=== PATIENT | female | born 1990 | race Caucasian/White ===

== ENCOUNTER → 2017-01-01 | Outpatient (CLI) | payer BC, OTHER ==
[~2017-01-01] MED LIST: HYDR25CA PO; METH4PAK PO; MTR600X PO; ONDA4TAB46 PO; PRENTAB26 PO; PRT/40 PO; RANI150T3 PO; ZNTT/150 PO
[2017-01-01 12:07] LABS: BASO % 0.3 %; BASO ABS # 0.02 K/uL (0-0.2); COMPLETE YES; EOS % 1.6 %; HEMATOCRIT 39.5 % (37-47); IG% 0.3 %; LYMPH % 32.9 %; LYMPH ABS # 2.29 K/uL (1.2-3.4); MEAN CELL VOLUME 89.8 fL (80-100); MEAN CORPUSCULAR HEMOGLOBIN 30.7 pg (25-34); MEAN CORPUSCULAR HGB CONC 34.2 g/dl (32-36); MEAN PLATELET VOLUME 10.4 fL (7.4-10.4); MONO % 4.7 %; NEUT % 60.2 %; PLATELET COUNT 257 K/uL (130-400); WHITE BLOOD COUNT 6.95 K/uL (4.8-10.8)
[2017-01-01 12:41] LABS: C-REACTIVE PROTEIN 1.69 mg/dl (0-0.29); RHEUMATOID FACTOR < 10.0 U/mL (0-15)
[2017-01-03 20:22] LABS: HLA-B27** TC 528X NEGATIVE (NEGATIVE)
== END | disposition home or self-care (01) ==
LOC: C.LAB 10:48
PROVIDERS: ATTEND Podiatrist Foot & Ankle Surgery
DX: M79.673 Pain in unspecified foot (principal)

== ENCOUNTER 2017-03-30 18:25 | Emergency (ER) | payer BC, OTHER ==
[~2017-03-30] VITALS: Ht 162.6 cm; Wt 74.4 kg
[~2017-03-30 18:25] MED LIST changes: -HYDR25CA PO; -METH4PAK PO; +PANT40TA2 PO; -PRT/40 PO; -ZNTT/150 PO
[2017-03-30 18:35] VITALS: TEMP 36.9; Ht 162.6 cm; Wt 74.4 kg
[2017-03-30] MEDS ORDERED: SODIUM CHLORIDE 0.9% 1000ML 1,000 ML IV STA (19:18)
[2017-03-30] MEDS ORDERED: DiphenhydrAMINE HCL 50 MG/ML VIAL IV STA (19:18)
[2017-03-30] MEDS ORDERED: FAMOTIDINE 20MG/102 ML D5W IV STA (19:18)
--- NOTE | 2017-03-30 19:21 | EMERGENCY ROOM VISIT NOTE ---
History Report prepared by [place]: Kaleigh Peña Under the Supervision of: Dr. Louis Kelley M.D. First contact with patient: 19:13 Chief Complaint: ALLERGIC REACTION Stated Complaint: ITCHY RASH Nursing Triage Summary: hives all over body, denies known allergen History of Present Illness The patient is a 27 year old female who presents to the Emergency Room with complaints of worsening global rash beginning last night. The patient states that last night she began to feel very itchy. This morning she woke up with red hives all over her body. She describes the rash a itchy and burning sensation. She denies new food intake, known allergies, shortness of breath, asthma, abdominal pain, vomiting, nausea, recent tick bites, or use of well water. Source of History: patient Onset: last night Position: other (global) Quality: other (pasquale) Timing: worsening Associated Symptoms: No abdominal pain, No nausea, No vomiting Note: Patient is experiencing itchy and burning red rash. Review of Systems See HPI for pertinent positives & negatives. A total of 10 systems reviewed and were otherwise negative. Past Medical & Surgical Medical Problems: (1) OTITIS MEDIA NOS (2) (3) Spotting affecting in second trimester Family History Cancer Diabetes mellitus Hypertension Social History Smoking Status: Current Every Day Smoker Alcohol Use: none Marital Status: in relationship Housing Status: lives with significant other Occupation Status: employed Current/Historical Medications Scheduled Methylprednisolone (Medrol Dosepak), 1 PKT PO UD Multivit/Min/Iron/Fol Ac/Pren ( Vitamin), 1 TAB PO DAILY Pantoprazole (Pantoprazole Sodium), 40 MG PO DAILY Ranitidine Hcl (Zantac), 1 TAB PO BID Scheduled PRN Ibuprofen (Ibuprofen), 600 MG PO Q4H PRN for PAIN, PAREKH, CRAMPING OR FEVER Ondansetron Hcl (Zofran), 4 MG PO for Nausea Allergies Coded Allergies: Morphine (Verified Allergy, Intermediate, RASH, 10/15/16) Patient states "I am not sure of reaction because it happened when I was child" Codeine (Verified Allergy, Mild, 10/15/16) Physical Exam Vital Signs Date Time Temp Pulse Resp B/P Pulse Ox O2 Delivery O2 Flow Rate FiO2 03/30/17 22:00 87 18 106/69 98 Room Air 03/30/17 20:45 80 16 105/65 98 03/30/17 19:45 88 16 104/60 99 03/30/17 18:37 Room Air 03/30/17 18:35 36.9 96 16 105/63 96 Room Air Physical Exam GENERAL: Patient is uncomfortable appearing and in mild distress. HEENT: No acute trauma, normocephalic atraumatic, mucous membranes moist, no nasal congestion, no scleral icterus. No swelling of lips or tongue. NECK: No stridor, no adenopathy, no meningismus, trachea is midline. LUNGS: No dyspnea. Clear to auscultation and equal bilaterally. No wheeze, no rhonchi. HEART: Regular rate and rhythm. No murmurs, rubs, gallops appreciated. ABDOMEN: Soft, nontender, bowel sounds positive, no masses appreciated, no peritonitis. BACK: No midline tenderness, no CVA tenderness EXTREMITIES: Normal motion all extremities, no cyanosis, no edema. NEUROLOGIC: Alert and oriented, no acute motor or sensory deficits, no focal weakness, cranial nerves grossly intact. SKIN: Diffuse hives over most of body. Mild edema to bilateral ears. Medical Decision & Procedures Medications Administered Medications (Trade) Dose Ordered Sig/Malcolm Route Start Time Stop Time Status Last Admin Dose Admin Famotidine (Pepcid 20mg/100 ml) 20 mg ONE STAT IV 03/30/17 19:18 03/30/17 19:19 DC 03/30/17 19:28 20 MG Diphenhydramine HCl (Benadryl Inj) 50 mg NOW STAT IV 03/30/17 19:18 03/30/17 19:19 DC 03/30/17 19:27 50 MG Dexamethasone Sodium Phosphate 10 mg 10 mg NOW ONCE IV 03/30/17 19:30 03/30/17 19:31 DC 03/30/17 19:28 10 MG Sodium Chloride (Nss 1000ml) 1,000 ml @ 999 mls/hr Q1H1M STAT IV 03/30/17 19:18 03/30/17 20:18 DC 03/30/17 19:27 999 MLS/HR Hydroxyzine HCl (Vistaril Tab) 25 mg NOW STAT PO 03/30/17 20:23 03/30/17 20:24 DC 03/30/17 20:43 25 MG ED Course 191: The patient was evaluated in room A9. A complete history and physical exam was performed. 1917: Sodium Chloride 1,000 ml @ 999 mls/hr IV, Benadryl Inj 50 mg IV, Pepcid 20 mg/ 100 ml 20 mg IV. 1929: Decadron Inj 10 mg IV. 2022: Vistaril Tab 25 mg PO. 2023: The patient is feeling better. The rash has improved other than mild erythema over right upper chest. 2201: Reevaluated the patient. Discussed results and discharge instructions: She verbalized understanding and agreement. The patient is ready for discharge. Medical Decision Differential: Allergic Reaction, Urticaria, Anaphylaxis, Mosher-Som Syndrome, Toxic Epidermal Necrolysis, Erythema Multiforme, Cellulitis, amongst other etiologies entertained. 27 yr old female arrives with diffuse hives/itching. Unknown cause of allergic reaction. She is stable without evidence of anaphylaxis. Vastly improved with nick/dec/pep and added on some Vistaril for some continued itching. Looks well and wants to get home. Awake, alert oriented and does not appear intoxicated from sedatives. Stable throughout ED stay. Discussed symptoms requiring return. Impression Primary Impression: Allergic reaction Additional Impression: Urticaria Scribe Attestation The scribe's documentation has been prepared under my direction and personally reviewed by me in its entirety. I confirm that the note above accurately reflects all work, treatment, procedures, and medical decision making performed by me. Departure Information Dispostion Home / Self-Care Prescriptions Methylprednisolone (MEDROL DOSEPAK) 4 Mg Enmanuel 1 PKT PO UD for 6 Days, #1 PKT Prov: Louis Kelley M.D. 03/30/17 Referrals No Doctor, Assigned (PCP) Forms HOME CARE DOCUMENTATION FORM, IMPORTANT VISIT INFORMATION Patient Instructions ED Allergic Reaction General Other, [facility] Problem Qualifiers Primary Impression: Allergic reaction Encounter type: initial encounter Qualified Codes: T78.40XA - Allergy, unspecified, initial encounter
[2017-03-30] MEDS ORDERED: DEXAMETHASONE SOD INJ 10 MG/ML VIAL IV ONE (19:30)
[2017-03-30] MEDS ORDERED: hydrOXYzine HCL 25 MG TAB PO STA (20:23)
[2017-03-30] MEDS ORDERED: METH4PAK PO (21:48)
[2017-03-30 22:00] VITALS: BP 106/69; PULSE 87; O2SAT 98
== END 2017-03-30 22:01 | disposition home or self-care (01) ==
LOC: C.EDB 18:26 → C.EDA 22:01
DX: L50.0 Allergic urticaria (principal); F17.210 Nicotine dependence, cigarettes, uncomplicated; Z80.9 Family history of malignant neoplasm, unspecified; Z83.3 Family history of diabetes mellitus; Z82.49 Family history of ischemic heart disease and other diseases of the circulatory system

== ENCOUNTER 2017-04-01 12:27 | Emergency (ER) | payer BC ==
[~2017-04-01] VITALS: Ht 162.6 cm; Wt 74.8 kg
[~2017-04-01 12:27] MED LIST changes: +METH4PAK PO
[2017-04-01 12:33] VITALS: Ht 162.6 cm; Wt 74.8 kg
[2017-04-01] MEDS ORDERED: SODIUM CHLORIDE 0.9% 1000ML 1,000 ML IV STA (12:42)
[2017-04-01] MEDS ORDERED: SODIUM CHLORIDE 0.9% 1000ML 1,000 ML IV ONE (12:42)
[2017-04-01] MEDS ORDERED: FAMOTIDINE 20MG/102 ML D5W IV STA (12:44)
[2017-04-01] MEDS ORDERED: DiphenhydrAMINE HCL 50 MG/ML VIAL IV STA (12:44)
[2017-04-01] MEDS ORDERED: DEXAMETHASONE SOD INJ 10 MG/ML VIAL IV ONE (12:45)
--- NOTE | 2017-04-01 13:08 | EMERGENCY ROOM VISIT NOTE ---
History Report prepared by [place]: Lino Heaton Under the Supervision of: Dr. David Graves M.D. First contact with patient: 12:37 Chief Complaint: ALLERGIC REACTION Stated Complaint: ALLERGIC REACTION Nursing Triage Summary: pt treated here on Fri for hives and an unknown allergic reaction , started RX for prednisone . Hives returned last night and have become worse today reports some sob , speech clear denies difficulty swallowing History of Present Illness The patient is a 27 year old female who presents to the Emergency Room with complaints of a worsening allergic reaction starting last night. The patient states that she was in the ED two days ago for a similar reaction, and it went away, however it has gotten worse. She states that she has no change of medication or foods. She states that she took her prednisone last night, and she has not taken any this morning. She states that she has been having some shortness of breath, chest pain, and neck pain. She denies any swelling to the lips, mouth, and tongue, though she states that her eyelids feel swollen. The patient additionally denies any nausea or vomiting. Her last normal menstrual period was about two weeks ago. Source of History: patient, spouse/significant other Onset: last night Position: other (global) Quality: other (allergic reaction) Timing: worsening Associated Symptoms: + SOB, + chest pain, + neck pain, No nausea, No vomiting Review of Systems See HPI for pertinent positives & negatives. A total of 10 systems reviewed and were otherwise negative. Past Medical & Surgical Medical Problems: (1) OTITIS MEDIA NOS (2) (3) Spotting affecting in second trimester Old medical records were reviewed. Nurse's notes were reviewed and I agree with. Family History Cancer Diabetes mellitus Hypertension Social History Smoking Status: Current Every Day Smoker Alcohol Use: none Drug Use: none Marital Status: in relationship Housing Status: lives with significant other Occupation Status: employed Current/Historical Medications Scheduled Methylprednisolone (Medrol Dosepak), 1 PKT PO UD Pantoprazole (Pantoprazole Sodium), 40 MG PO DAILY Ranitidine (Zantac), 150 MG PO BID Scheduled PRN Hydroxyzine Pamoate (Vistaril), 1 CAP PO Q6 PRN for Itching Ibuprofen (Ibuprofen), 600 MG PO Q4H PRN for PAIN, PAREKH, CRAMPING OR FEVER Allergies Coded Allergies: Morphine (Verified Allergy, Intermediate, RASH, 10/15/16) Patient states "I am not sure of reaction because it happened when I was child" Codeine (Verified Allergy, Mild, 10/15/16) Physical Exam Vital Signs Date Time Temp Pulse Resp B/P Pulse Ox O2 Delivery O2 Flow Rate FiO2 04/01/17 16:47 36.5 88 18 107/66 98 04/01/17 16:46 88 18 107/66 98 Room Air 04/01/17 15:36 87 18 108/61 98 Room Air 04/01/17 14:48 88 18 101/60 100 Room Air 04/01/17 12:33 36.5 96 20 103/67 100 Room Air Physical Exam General: Non-ill appearing young female. HEENT: Normal cephalic atraumatic. Pupils are equal round and reactive to light. Sclerae anicteric. Extraocular movements are intact. Oropharynx is pink with moist mucous membranes and no swelling. No swelling of the mouth lips or tongue. Speaking and swallowing without difficulty or drooling Neck: Supple with a midline trachea. No meningeal signs or stiffness, no JVD or bruits. No Stridor. Chest: Clear to auscultation bilaterally. No wheezes or rhonchi. No increased work of breathing. Heart: regular rate and rhythm. Abdomen: Soft nontender, nondistended without rebound guarding or rigidity. Extremities: No cyanosis clubbing or edema. No calf tenderness or assymetry Spine/Back. Non tender to palpation. No CVA tenderness Skin: Diffuse rash mostly on the torso and extremities. Red and circular consistent with hives. Good turgor. No vasculitic rash. No involvement of the mucous membranes or palms or soles. Neurologic exam: Cranial nerves two through 12 are intact. Motor and sensation are intact and symmetrical throughout. Medical Decision & Procedures Laboratory Results 04/01/17 14:05 Red Blood Count 4.46, Mean Corpuscular Volume 89.0, Mean Corpuscular Hemoglobin 30.3, Mean Corpuscular Hemoglobin Concent 34.0, Mean Platelet Volume 10.2, Neutrophils (%) (Auto) 79.2, Lymphocytes (%) (Auto) 17.3, Monocytes (%) (Auto) 2.6, Eosinophils (%) (Auto) 0.5, Basophils (%) (Auto) 0.1, Neutrophils # (Auto) 9.29, Lymphocytes # (Auto) 2.03, Monocytes # (Auto) 0.31, Eosinophils # (Auto) 0.06, Basophils # (Auto) 0.01 04/01/17 14:05 Test 04/01/17 14:05 White Blood Count 11.73 K/uL (4.8-10.8) Red Blood Count 4.46 M/uL (4.2-5.4) Hemoglobin 13.5 g/dL (12.0-16.0) Hematocrit 39.7 % (37-47) Mean Corpuscular Volume 89.0 fL (80-100) Mean Corpuscular Hemoglobin 30.3 pg (25-34) Mean Corpuscular Hemoglobin Concent 34.0 g/dl (32-36) Platelet Count 186 K/uL (130-400) Mean Platelet Volume 10.2 fL (7.4-10.4) Neutrophils (%) (Auto) 79.2 % Lymphocytes (%) (Auto) 17.3 % Monocytes (%) (Auto) 2.6 % Eosinophils (%) (Auto) 0.5 % Basophils (%) (Auto) 0.1 % Neutrophils # (Auto) 9.29 K/uL (1.4-6.5) Lymphocytes # (Auto) 2.03 K/uL (1.2-3.4) Monocytes # (Auto) 0.31 K/uL (0.11-0.59) Eosinophils # (Auto) 0.06 K/uL (0-0.5) Basophils # (Auto) 0.01 K/uL (0-0.2) RDW Standard Deviation 43.9 fL (36.4-46.3) RDW Coefficient of Variation 13.4 % (11.5-14.5) Immature Granulocyte % (Auto) 0.3 % Immature Granulocyte # (Auto) 0.03 K/uL (0.00-0.02) Anion Gap 7.0 mmol/L (3-11) Est Creatinine Clear Calc Drug Dose 113.7 ml/min Estimated GFR () 129.9 Estimated GFR (Non- 112.1 BUN/Creatinine Ratio 16.6 (10-20) Calcium Level 8.2 mg/dl (8.5-10.1) Total Bilirubin 0.4 mg/dl (0.2-1) Direct Bilirubin < 0.1 mg/dl (0-0.2) Aspartate Amino Transf (AST/SGOT) 8 U/L (15-37) Alanine Aminotransferase (ALT/SGPT) 27 U/L (12-78) Alkaline Phosphatase 64 U/L (45-117) Total Protein 6.6 gm/dl (6.4-8.2) Albumin 3.7 gm/dl (3.4-5.0) Lipase 54 U/L (73-393) Human Chorionic Gonadotropin, Qual NEG (NEG) Laboratory studies as stated above per my review. Medications Administered Medications (Trade) Dose Ordered Sig/Malcolm Route Start Time Stop Time Status Last Admin Dose Admin Sodium Chloride 1,000 ml @ 999 mls/hr Q1H1M STAT IV 04/01/17 12:42 04/01/17 13:42 DC 04/01/17 13:05 999 MLS/HR Sodium Chloride (Nss 1000ml) 1,000 ml @ 150 mls/hr Q6H40M ONCE IV 04/01/17 12:42 04/01/17 19:21 04/01/17 12:42 150 MLS/HR Famotidine (Pepcid 20mg/100 ml) 20 mg ONE STAT IV 04/01/17 12:44 04/01/17 12:46 DC 04/01/17 13:05 20 MG Diphenhydramine HCl (Benadryl Inj) 50 mg NOW STAT IV 04/01/17 12:44 04/01/17 12:46 DC 04/01/17 13:05 50 MG Dexamethasone Sodium Phosphate (Decadron Inj) 10 mg NOW ONCE IV 04/01/17 12:45 04/01/17 12:46 DC 04/01/17 13:05 10 MG Hydroxyzine HCl (Vistaril Tab) 25 mg NOW STAT PO 04/01/17 15:02 04/01/17 15:03 DC 04/01/17 15:35 25 MG ED Course 1237: Past medical records reviewed. The patient was evaluated in room B2, and a complete history and physical examination were performed. 1242: Sodium Chloride 1000 ml @ 150 mls/hr IV, Sodium Chloride 1000 ml @ 999 mls /hr IV 1244: Benadryl Inj 50mg IV, Famotidine 20mg IV 1245: Decadron Inj 10mg IV 1326: I reevaluated the patient, and the medications were in, and she was feeling better. 1411: The patient was less itchy. The rash is still there, but it is starting to fade. 1501: I reassessed her, and the rash has faded but is still a little bit itchy. She asked for Vistaril which she had last time that she was here. 1502: Vistaril Tab 25mg PO 1557: I reevaluated the patient, and she was feeling a lot better. I offered to keep her here for evaluation, but she wants to go home, and she states that she already made an appointment with her doctor for tomorrow. 1632: Upon reevaluation, the patient is feeling better. I discussed the results and treatment plan with her. She verbalized agreement of the treatment plan. The patient was discharged home. Medical Decision Differentials include, but are not limited to; allergic reaction, hives, electrolyte or metabolic abnormality, infection. Medication reconciliation I attest that I have personally reviewed the patient' s medication list in the medical record/computer This patient comes in after having a rash. She felt better after leaving the day but it got worse it's itchy. She told me that there is no allergens new meds however upon further reviewed her med list she was noted to be on Bactrim. She told me that she had this for skin infection which has resolved. She's had this before so did not think it was a problem. This certainly could be related to the Bactrim. She has no evidence of anaphylaxis or airway compromise. Her symptoms have been going on since at least last night. IV access established and she was given Decadron 10 mg IV, Pepcid IV, Benadryl 50 mg IV. The rash was starting to fade and she was less itching. She asked for some hydroxyzine which she had on Sunday for similar complaints and was given 25 by mouth and this seemed to help. Given the fact that this was recurrent, I did check some baseline blood work and there is no white count or fever to suggest infection. She has no anemia. She has no liver function or pancreas function abnormalities. She was feeling better and felt up to going home. I did offer to possibly admit her for observation further evaluation but she actually made an appointment see her doctor tomorrow which I encouraged her to keep. She is to continue the steroid taper that was given by Dr. Kelley. I gave her prescription for the hydroxyzine that she can use 25 mg every 6 hours. She was warned that it could make her record drowsy and do not take for drinking, driving, working do not take with Benadryl take with it either. I will also put her on Zantac 150 mg twice a day for H2 blocking effect as well. She does have close follow-up with her doctor and may be related to the Bactrim or viral illness or another allergen yet to be identified. She should return if : worsening of symptoms, fever or chills, shortness of breath, any new problems or concerns. The patient and her significant other were happy with plan and she was discharged to home with her boyfriend driving Impression Primary Impression: Allergic reaction Scribe Attestation The scribe's documentation has been prepared under my direction and personally reviewed by me in its entirety. I confirm that the note above accurately reflects all work, treatment, procedures, and medical decision making performed by me. Departure Information Dispostion Home / Self-Care Prescriptions Ranitidine (Zantac) 150 Mg Tab 150 MG PO BID, #20 TAB Prov: David Graves M.D. 04/01/17 Hydroxyzine Pamoate (VISTARIL) 25 Mg Cap 1 CAP PO Q6 Y for Itching for 30 Days, #20 CAP 1 Refill Prov: David Graves M.D. 04/01/17 Referrals No Doctor, Assigned (PCP) Forms HOME CARE DOCUMENTATION FORM, IMPORTANT VISIT INFORMATION Patient Instructions [facility] Additional Instructions Rest. Drink plenty of fluids. Start the Bactrim Continue to use your Medrol Dosepak/steroids Use Zantac 150 mg twice a day For itching may use Atarax 25 mg every 6 hours Atarax may make you drowsy and do not take before drinking, driving, working Return if: Worsening of symptoms, shortness of breath, fever or chills, any new problems or concerns,
[2017-04-01 14:21] LABS: BASO % 0.1 %; BASO ABS # 0.01 K/uL (0-0.2); COMPLETE YES; EOS % 0.5 %; HEMATOCRIT 39.7 % (37-47); IG% 0.3 %; LYMPH % 17.3 %; LYMPH ABS # 2.03 K/uL (1.2-3.4); MEAN CORPUSCULAR HEMOGLOBIN 30.3 pg (25-34); MEAN PLATELET VOLUME 10.2 fL (7.4-10.4); MONO % 2.6 %; NEUT % 79.2 %; PLATELET COUNT 186 K/uL (130-400); RED BLOOD COUNT 4.46 M/uL (4.2-5.4); WHITE BLOOD COUNT 11.73 K/uL (4.8-10.8)
[2017-04-01 14:39] LABS: ALT/SGPT 27 U/L (12-78); AST/SGOT 8 U/L (15-37); BLOOD UREA NITROGEN 12 mg/dl (7-18); BUN/CREATININE RATIO 16.6 (10-20); CALCIUM 8.2 mg/dl (8.5-10.1); CARBON DIOXIDE 25 mmol/L (21-32); CHLORIDE 111 mmol/L (98-107); CREATININE 0.73 mg/dl (0.60-1.20); GLUCOSE 82 mg/dl (70-99); POTASSIUM 3.6 mmol/L (3.5-5.1); SODIUM 143 mmol/L (136-145)
[2017-04-01 14:42] LABS: ALKALINE PHOSPHATASE 64 U/L (45-117)
[2017-04-01 14:50] LABS: PREG INTERNAL NEGATIVE QC NEG CLEAR BACKGROUND; PREG INTERNAL POSITIVE QC POS CONTROL LINE
[2017-04-01] MEDS ORDERED: hydrOXYzine HCL 25 MG TAB PO STA (15:02)
[2017-04-01] MEDS ORDERED: HYDR25CA PO (16:24)
[2017-04-01] MEDS ORDERED: ZNTT/150 PO (16:24)
[2017-04-01 16:47] VITALS: BP 107/66; PULSE 88; TEMP 36.5; O2SAT 98
== END 2017-04-01 16:48 | disposition home or self-care (01) ==
LOC: C.EDB 12:28
DX: T78.40XA Allergy, unspecified, initial encounter (principal); L50.0 Allergic urticaria; R06.02 Shortness of breath; X58.XXXA Exposure to other specified factors, initial encounter; F17.210 Nicotine dependence, cigarettes, uncomplicated